=== PATIENT | male | born 1995 | race Two or more races ===

== ENCOUNTER → 2019-04-19 | Outpatient (CLI) | payer BC, OTHER ==
--- NOTE | 2019-04-19 15:03 | RAD ---
Left breast ultrasound, 04/19/2019: HISTORY: Breast lumps and tenderness The patient reports that there were areas of palpable concern and pain at the 12:00 and 2-3:00 locations which have subsequently resolved. We performed a targeted ultrasound exam of those regions. No solid mass or unusual fluid collection is seen. Clinical follow-up is suggested. Electronically signed by: Js Gutierrez MD (04/19/2019 3:00 PM) [facility]
== END | disposition home or self-care (01) ==
LOC: US 14:02
PROVIDERS: ATTEND Nurse Practitioner Family
DX: R59.0 Localized enlarged lymph nodes (principal); D48.62 Neoplasm of uncertain behavior of left breast
CPT/HCPCS: 76641

== ENCOUNTER 2020-09-28 17:20 | Emergency (ER) | payer OTHER ==
[~2020-09-28] VITALS: Ht 175.3 cm; Wt 90.9 kg
[2020-09-28 17:53] VITALS: BP 128/91
--- NOTE | 2020-09-28 18:54 | PHYS DOC ---
Past History Past Medical History: Kidney Stones General Adult EDM: Chief Complaint: MULTIPLE COMPLAINTS HPI: HPI: "We were out walking this afternoon.. and all sudden I got severe Lt flank and low back pain .. It did radiated around to my lower abdomen... I did have a k idney stone once that deborah hurt like this..." Patient is a 24 year old male who presents with above hx and multiple complaints . Checked FTA and Lobby multiple times. Informed pt. eloped. No exam or Hx. Pt. apparently did not elope , but moved to another room and pt. not show on tacking board. Pt. follows with Dr. Gayathri Burris. Patient gives a history of previous kidney stones. Patient denies any history of trauma. No recent travel. No specific ill contacts. Patient localizes pain in left flank and radiates to left testicle. Patient denies any intake of bad food. Patient describes his left flank pain as like previous kidney stone. No history of immunosuppression. No history of STDs. No recent travel. No recent specific ill contacts. No history of bad food intake. No problems with defecation or urination. Has not noted any hematuria. Review of Systems: Review of Systems: Hx Multiple Complaints- Eloped Family History: Family History: Noncontributory to presentation Current Medications: Current Meds: See nursing for home meds Allergies: Allergies: No known drug allergies Physical Exam: PE: Informed pt. Eloped- patient eventually found in room 8- had been moved from fast track A to Room 8, and was not noted on tracking borad. HEENT-no trauma. Pupils equal react to light. Extraocular motions intact. Neck supple. Fair dentition. Chest-breath sounds equal apex with few scattered wheezes. Cardiovascular -regular rate and rhythm no appreciable murmur Abdomen-localizes pain to left flank. Has CVA tenderness. Percussion cause pain to radiate to the left testicle. Decreased bowel sounds. Distended. Obese. Genitalia normal male. No penile discharge. Patient refuses rectal exam. No rebound tenderness. Extremities-no swelling or pain. Patient ambulatory without problems. No edema. EKG: EKG: [] Radiology/Procedures: Radiology/Procedures: [address] [address] IMAGING REPORT Signed PATIENT: POONAM ALAMO: [id number] : 1995 LOCATION: ER AGE: 24 SEX: M EXAM STATUS: REG ER ORD. PHYSICIAN: BERNARD LANDAVERDE MD REASON: Lt. flank pain ( Hx prior kidney stone) PROCEDURE: CT ABDOMEN PELVIS WO CONTRAST EXAM: CT Abdomen and Pelvis without IV contrast INDICATION: Reason: Lt. flank pain ( Hx prior kidney stone) / Spl. Instructions: / History: TECHNIQUE: Multi-detector row CT images were acquired from the lung bases through the abdomen and pelvis without the use of IV contrast. Sagittal and coronal images were acquired from the transaxial data. All CT scans performed at this facility utilize dose optimization techniques as appropriate to the exam, including the following: Automated exposure control and adjustment of the mA and/or KV according to patient size (this includes techniques or standardized protocols for targeted exams where dose is indication/reason for exam). ORAL CONTRAST: None COMPARISON: None FINDINGS: The absence of IV contrast limits evaluation of soft tissue pathology. LOWER CHEST: Unremarkable LIVER: Unremarkable BILIARY SYSTEM: Gallbladder is unremarkable. Bile ducts are not dilated. PANCREAS: Unremarkable SPLEEN: Unremarkable ADRENALS: Unremarkable KIDNEYS & URETERS: Unremarkable BLADDER: Unremarkable REPRODUCTIVE ORGANS: Unremarkable GASTROINTESTINAL: The stomach, small bowel, and colon are unremarkable. The appendix is normal. MESENTERY/PERITONEUM/RETROPERITONEUM: Unremarkable VASCULAR: Unremarkable LYMPH NODES: No adenopathy OSSEOUS & SOFT TISSUES: Unremarkable IMPRESSION: Unremarkable CT of the abdomen and pelvis without contrast. Electronically signed by: Lala Lee MD (09/28/2020 10:34 PM) [facility] [place] DICTATED AND SIGNED BY: LALA LEE MD DATE: 09/28/20 9242 CC: BERNARD LANDAVERDE MD; GARRISON BURRIS DEPORTATION OFFICER-C ~ [][address] [address] IMAGING REPORT Signed PATIENT: POONAM ALAMO AACCOUNT: [id number] : 1995 LOCATION: ER AGE: 24 SEX: M EXAM STATUS: REG ER ORD. PHYSICIAN: BERNARD LANDAVERDE MD REASON: Lt. flank pain ( Hx prior kidney stone) PROCEDURE: CT ABDOMEN PELVIS WO CONTRAST EXAM: CT Abdomen and Pelvis without IV contrast INDICATION: Reason: Lt. flank pain ( Hx prior kidney stone) / Spl. Instructions: / History: TECHNIQUE: Multi-detector row CT images were acquired from the lung bases through the abdomen and pelvis without the use of IV contrast. Sagittal and coronal images were acquired from the transaxial data. All CT scans performed at this facility utilize dose optimization techniques as appropriate to the exam, including the following: Automated exposure control and adjustment of the mA and/or KV according to patient size (this includes techniques or standardized protocols for targeted exams where dose is indication/reason for exam). ORAL CONTRAST: None COMPARISON: None FINDINGS: The absence of IV contrast limits evaluation of soft tissue pathology. LOWER CHEST: Unremarkable LIVER: Unremarkable BILIARY SYSTEM: Gallbladder is unremarkable. Bile ducts are not dilated. PANCREAS: Unremarkable SPLEEN: Unremarkable ADRENALS: Unremarkable KIDNEYS & URETERS: Unremarkable BLADDER: Unremarkable REPRODUCTIVE ORGANS: Unremarkable GASTROINTESTINAL: The stomach, small bowel, and colon are unremarkable. The appendix is normal. MESENTERY/PERITONEUM/RETROPERITONEUM: Unremarkable VASCULAR: Unremarkable LYMPH NODES: No adenopathy OSSEOUS & SOFT TISSUES: Unremarkable IMPRESSION: Unremarkable CT of the abdomen and pelvis without contrast. Electronically signed by: Lala Lee MD (09/28/2020 10:34 PM) [facility] [place] DICTATED AND SIGNED BY: LALA LEE MD DATE: 09/28/20 2234 CC: BERNARD LANDAVERDE MD; GARRISON BURRIS DEPORTATION OFFICER- ~ Heart Score: Risk Factors: Risk Factors: DM, Current or recent (<one month) smoker, HTN, HLP, family history of CAD, obesity. Risk Scores: Score 0 - 3: 2.5% MACE over next 6 weeks - Discharge Home Score 4 - 6: 20.3% MACE over next 6 weeks - Admit for Clinical Observation Score 7 - 10: 72.7% MACE over next 6 weeks - Early Invasive Strategies Course & Med Decision Making: Course & Med Decision Making Pertinent Labs and Imaging studies reviewed. (See chart for details) Hx. Multiple complaints-nursing advised patient had Eloped-eventually patient found in room 8-was not noted on tracking board Patient to stay on a clear fluid diet. Patient follow-up primary care. Patient push fluids. No solids or milk products if having discomfort for the next 48 hours. Patient to remain on a clear fluid diet to allow bowel rest. Take Tylenol and ibuprofen for pain. Follow-up with labs and review with primary care. Reviewed labs and CT findings with patient. If persistent problems or exacerbation of pain return for reexam. Must follow-up with primary care. At time of discharge patient reports marked resolution of symptoms. Amatory without problems. Declined to wait and have contrast CT evaluation. Advised patient stay on a clear fluid diet. Informed patient that symptoms may be related to bowel problems such as colitis or inflammatory bowel issues to clean the left colon. Consider follow-up primary care for GI for colonoscopy. Impression: 1. Abdomen pain 2. Left renal colic 3. Mild elevation AST ALT 41 and ALT 126 (Note there was lost of some dictation due to computer shut down. There was als o delay in care due to movement of Pt. from FTA to room *8, and this was not noted on tracking board. Informed initially patient had eloped after several checks of fast track A) [] Dragon Disclaimer: Dragon Disclaimer: This electronic medical record was generated, in whole or in part, using a voice recognition dictation system. Departure Departure: Disposition: 01 DC HOME SELF CARE/HOMELESS Condition: STABLE Referrals: GARRISON BURRIS (PCP) Rusty Disclaimer This chart was dictated in whole or in part using Voice Recognition software in a busy, high-work load, and often noisy Emergency Department environment. It may contain unintended and wholly unrecognized errors or omissions. Dragon Disclaimer This chart was dictated in whole or in part using Voice Recognition software in a busy, high-work load, and often noisy Emergency Department environment. It may contain unintended and wholly unrecognized errors or omissions. BERNARD LANDAVERDE MD Sep 28, 2020 18:54
[2020-09-28 19:52] LABS: BARBITURATES NEG (NEG); BENZODIAZEPINES NEG (NEG); CANNABINOIDS NEG (NEG); COCAINE NEG (NEG); METHADONE NEG (NEG); OPIATES NEG (NEG); PHENCYCLIDINE NEG (NEG)
[2020-09-28 19:53] LABS: AMPHETAMINE/METHAMPHETAMINE NEG (NEG)
[2020-09-28] MEDS ORDERED: IV RINGERS SOLUTION,LACTATED 1,000 ML IV ONE (20:00)
[2020-09-28 20:01] LABS: BACTERIA,URINE 0 /HPF (0-FEW); BILIRUBIN,URINE NEG (NEG); CLARITY,URINE CLEAR; COLOR,URINE AMBER; GLUCOSE,URINE NEG (NEG); NITRITE,URINE NEG (NEG); RBC,URINE OCC /HPF (0-2); SQUAMOUS EPITHELIAL CELL,UR OCC /LPF; UROBILINOGEN,URINE 0.2 mg/dL (0.2 mg/dL); WBC,URINE OCC /HPF (0-4)
[2020-09-28 20:19] LABS: BASO % 1 % (0-3); EOS # 0.2 x10^3/uL (0.0-0.7); EOS % 3 % (0-3); HEMATOCRIT 52.3 % (39.0-53.0); HEMOGLOBIN 17.3 g/dL (13.0-17.5); LYMPH # 1.4 x10^3/uL (1.0-4.8); LYMPH % 22 % (24-48); MEAN CORPUSCULAR HEMOGLOBIN 27 pg (25-35); MEAN CORPUSCULAR HGB CONC 33 g/dL (31-37); MEAN CORPUSCULAR VOLUME 83 fL (79-100); MONO # 0.5 x10^3/uL (0.0-1.1); MONO % 9 % (0-9); NEUT % 65 % (31-73); PLATELET COUNT 282 x10^3/uL (140-400); RED BLOOD COUNT 6.34 x10^6/uL (4.30-5.70); RED CELL DISTRIBUTION WIDTH 13.7 % (11.5-14.5); WHITE BLOOD COUNT 6.2 x10^3/uL (4.0-11.0)
[2020-09-28 20:28] LABS: GFR 93.4; POTASSIUM 3.9 mmol/L (3.5-5.1)
[2020-09-28 20:34] LABS: ALBUMIN 4.7 g/dL (3.4-5.0); ALBUMIN/GLOBULIN RATIO 1.1 (1.0-1.7); TOTAL BILIRUBIN 0.4 mg/dL (0.2-1.0)
[2020-09-28 20:39] LABS: INFLUENZA A PATIENT NEGATIVE (NEGATIVE); INFLUENZA B PATIENT NEGATIVE (NEGATIVE)
[2020-09-28] MEDS ORDERED: MORPHINE SULFATE 10 MG/ML SYRINGE. SQ ONE (21:00)
[2020-09-28] MEDS ORDERED: ONDANSETRON PF 4 MG/2 ML VIAL. IVP ONE (21:00)
[2020-09-28] MEDS ORDERED: KETOROLAC 30 MG/ML VIAL. IVP ONE (21:00)
--- NOTE | 2020-09-28 22:36 | RAD ---
EXAM: CT Abdomen and Pelvis without IV contrast INDICATION: Reason: Lt. flank pain ( Hx prior kidney stone) / Spl. Instructions: / History: TECHNIQUE: Multi-detector row CT images were acquired from the lung bases through the abdomen and pelvis without the use of IV contrast. Sagittal and coronal images were acquired from the transaxial data. All CT scans performed at this facility utilize dose optimization techniques as appropriate to the exam, including the following: Automated exposure control and adjustment of the mA and/or KV according to patient size (this includes techniques or standardized protocols for targeted exams where dose is indication/reason for exam). ORAL CONTRAST: None COMPARISON: None FINDINGS: The absence of IV contrast limits evaluation of soft tissue pathology. LOWER CHEST: Unremarkable LIVER: Unremarkable BILIARY SYSTEM: Gallbladder is unremarkable. Bile ducts are not dilated. PANCREAS: Unremarkable SPLEEN: Unremarkable ADRENALS: Unremarkable KIDNEYS & URETERS: Unremarkable BLADDER: Unremarkable REPRODUCTIVE ORGANS: Unremarkable GASTROINTESTINAL: The stomach, small bowel, and colon are unremarkable. The appendix is normal. MESENTERY/PERITONEUM/RETROPERITONEUM: Unremarkable VASCULAR: Unremarkable LYMPH NODES: No adenopathy OSSEOUS & SOFT TISSUES: Unremarkable IMPRESSION: Unremarkable CT of the abdomen and pelvis without contrast. Electronically signed by: Piotr Lee MD (09/28/2020 10:34 PM) [facility] [place]
[2020-09-29] MEDS ORDERED: MAGNESIUM HYDROXIDE 2,400 MG/30 ML ORAL.SUSP. PO ONE
== END 2020-09-29 00:25 | disposition home or self-care (01) ==
LOC: ER 17:20
DX: N20.0 Calculus of kidney (principal); R10.9 Unspecified abdominal pain; M54.5 Low back pain; M54.2 Cervicalgia; R74.01 Elevation of levels of liver transaminase levels; Z87.442 Personal history of urinary calculi
CPT/HCPCS: 36415; 74176; 80053; 80307; 81001; 83690; 85025; 87070; 87804; 87880; 96361; 96372; 96374; 96375; 99284; J1885; J2270; J2405; J7120; 99285